=== PATIENT | male | born 1990 | race African-American/Black ===

== ENCOUNTER 2018-10-11 09:51 | Emergency (ER) | payer OTHER ==
[~2018-10-11] VITALS: Ht 185.4 cm; Wt 72.6 kg
[2018-10-11 10:00] VITALS: Ht 185.4 cm; Wt 72.6 kg
[2018-10-11 10:37] LABS: PLATELET COUNT 149 x10^3mcL (130-400); RED CELL DISTRIBUTION WIDTH 13.4 % (11.5-14.5)
[2018-10-11 11:04] LABS: ALKALINE PHOSPHATASE 62 U/L (46-116); ALT/SGPT 60 U/L (16-63); AST/SGOT 49 U/L (15-37); BILIRUBIN TOTAL 1.4 mg/dL (0.20-1.00); CARBON DIOXIDE 22.9 mmol/L (21-32); CHLORIDE SERUM 99 mmol/L (98-107); CREATININE SERUM 0.8 mg/dL (0.7-1.3); GFR1 > 60 mL/min; POTASSIUM SERUM 3.3 mmol/L (3.5-5.1); SODIUM SERUM 136 mmol/L (136-145); TOTAL PROTEIN, SERUM 7.6 g/dL (6.4-8.2)
[2018-10-11 11:47] LABS: ALBUMIN 4.2 g/dL (3.4-5.0); CALCIUM 9.2 mg/dL (8.5-10.1); GLUCOSE SERUM 88 mg/dL (74-106)
[2018-10-11 12:01] LABS: AMPHETAMINE QUAL UR NONE DETECTED (See below)
[2018-10-11 12:09] LABS: BAND NEUTROPHIL 1 % (0-10); BASOPHIL 0 % (0-2); MONOCYTE 10 % (0-7); PLATELET MORPHOLOGY PLT CLUMPS SEEN; SEGMENTED NEUTROPHILS 73 % (37-75); rbc morphology (normal/abnorm) NORMAL (NORMAL)
[2018-10-11 13:55] VITALS: BP 141/80
== END 2018-10-11 13:55 | disposition home or self-care (01) ==
LOC: ED 09:51
PROVIDERS: Emergency Medicine
DX: F19.10 Other psychoactive substance abuse, uncomplicated (principal)
CPT/HCPCS: 36415; G0480

== ENCOUNTER 2018-10-31 15:13 | Emergency (ER) | payer OTHER ==
[~2018-10-31] VITALS: Ht 185.4 cm; Wt 70.9 kg
[2018-10-31 15:25] VITALS: Ht 185.4 cm; Wt 70.9 kg
[2018-10-31 17:17] VITALS: BP 138/81
== END 2018-10-31 17:17 | disposition home or self-care (01) ==
LOC: ED 15:13
DX: R51 Headache (principal); Z88.5 Allergy status to narcotic agent